=== PATIENT | female | born 1990 | race Caucasian/White ===

== ENCOUNTER 2021-04-07 16:13 | Outpatient (CLI) | payer BC ==
[~2021-04-07] VITALS: Ht 162.6 cm; Wt 84.5 kg
[~2021-04-07 16:13] MED LIST: BIRTH CONTROL PILLS; OMNICEF 300MG300 MG PO; ZOFRAN 4MG T4 MG/TAB PO; [UNRECOGNIZED DRUG - OTHER] OD
--- NOTE | 2021-04-07 16:20 | NUR ---
Pt arrived on unit ambulatory and with complaints of possible ROM and pink discharge when going to the bathroom. Pt denies feeling any contractions and reports normal movement. EFM and toco monitors started. Vital signs WNL. SVE by this RN FT/50/-2 with amnio-trace inconclusive.
--- NOTE | 2021-04-07 17:05 | NUR ---
Repeat amnio-trace done. Results inconclusive. Orders for ROM plus received and collected.
[2021-04-07 17:25] VITALS: BP 126/74; PULSE 99; TEMP 97.8
[2021-04-07] MEDS ORDERED: PRISTIQ 50 MG T50 MG PO (17:58)
[2021-04-07] MEDS ORDERED: PRENATAL (17:58)
[2021-04-07] MEDS ORDERED: OMEGA-3 1000 MG1 CAP PO (17:59)
[2021-04-07] MEDS ORDERED: OSCAL 500 TAB500 MG (17:59)
[2021-04-07] MEDS ORDERED: CLARITIN 1010 MG/TAB (17:59)
--- NOTE | 2021-04-07 18:10 | NUR ---
Discharge instructions reviewed with pt and at the bedside. Both verbalized an understanding and agreed with the plan.
== END 2021-04-07 18:25 | disposition home or self-care (01) ==
LOC: LDRO 16:13 → LDR 17:31 → LDRO 18:25
DX: Z34.93 Encounter for supervision of normal pregnancy, unspecified, third trimester (principal); Z3A.35 35 weeks gestation of pregnancy
CPT/HCPCS: OP

== ENCOUNTER 2021-05-08 06:13 | Inpatient (IN) | payer BC ==
[~2021-05-08] VITALS: Ht 162.6 cm; Wt 89.5 kg
[2021-05-08] VITALS (66 sets, daily range): BP systolic 98–180; BP diastolic 51–120; PULSE 65–126; TEMP 98–99.7
[~2021-05-08 06:13] MED LIST changes: +CLARITIN 1010 MG/TAB; +OMEGA-3 1000 MG1 CAP PO; +OSCAL 500 TAB500 MG; +PRENATAL; +PRISTIQ 50 MG T50 MG PO
--- NOTE | 2021-05-08 06:20 | NUR ---
PT AMBULATORY TO UNIT FOR SCHEDULED INDUCTION OF LABOR. PT ORIENTED TO LABOR AND AND ON EFM/TOCO. CATEGORY 1 STRIP UPON ARRIVAL. PT DENIES CONTRACTIONS, DENIES LEAKING OF FLUID, AND REPORTS POSITIVE MOVEMENT. WILL PROCEED WITH INDUCTION PER ORDERS.
[2021-05-08 07:22] LABS: BASO % 0.3 % (0.0-2.0); EOS # 0.3 K/mm3 (0.0-0.7); EOS % 2.5 % (0-4.0); GRAN # 8.7 K/mm3 (1.4-6.5); GRAN % 71.8 % (42.2-75.2); HEMOGLOBIN 12.8 g/dl (12.5-16.0); LYMPH # 2.2 K/mm3 (1.2-3.4); LYMPH % 17.8 % (20.0-51.0); MEAN CELL VOLUME 85 fl (80.0-100.0); MEAN CORPUSCULAR HEMOGLOBIN 30 pg (27.0-31.0); MEAN CORPUSCULAR HGB CONC 35 g/dl (33.0-37.0); MEAN PLATELET VOLUME 10.7 fl (7.4-10.4); MONO # 0.8 K/mm3 (0.1-0.6); MONO % 6.5 % (1.7-9.3); PLATELET COUNT 214 K/mm3 (130-400); RED BLOOD COUNT 4.34 M/mm3 (4.10-5.30); REDCELL DISTRIBUTION WIDTH-CV 12.8 % (11.5-14.5)
--- NOTE | 2021-05-08 08:15 | NUR ---
ROLES AT PT BEDSIDE. SVE /-2. NO NEW ORDERS GIVEN AT THIS TIME. WILL PROCEED WITH INDUCTION PER PROTOCOL/ORDERS.
--- NOTE | 2021-05-08 11:11 | NUR ---
SUMAYA SENA AT BEDSIDE AT THIS TIME. EDUCATES PT ON EPIDURAL PLACEMENT AND POSSIBLE SIDE EFFECTS. ALL CONSENTS SIGNED. PT ASSISTED TO SITTING POSITION ON EDGE OF BED FOR EPIDURAL PLACEMENT. LR BOLUS INFUSING. PT'S VITAL SIGNS STABLE. DIFFICULTY TRACING EFM/TOCO DUE TO MATERNAL POSITIONG. 1111: TEST DOSE PER JAIDA SHELL. PT TOLERATED PROCEDURE WELL.
--- NOTE | 2021-05-08 12:01 | NUR ---
this RN is taking over care for lunch relief
--- NOTE | 2021-05-08 22:45 | NUR ---
2032 - PEREZ CATHETER DC'D WITH 300CC NICOLE URINE OUT 2039 - PUSHING INITIATED, INSTRUCTED PT ON PUSHING TECHNIQUES, PUSHING WITH CTXS, RN REMAINS AT BEDSIDE COACHING PT WITH PUSHING AND ASSESSING STATUS
--- NOTE | 2021-05-08 22:51 | NUR ---
PT CONTINUES TO PUSH WITH CTXS, RN REMAINS AT BEDSIDE COACHING PT WITH PUSHING AND ASSESSING STATUS
--- NOTE | 2021-05-08 22:55 | NUR ---
PT CONTINUES TO PUSH WITH CTXS, RN REMAINS AT BEDSIDE COACHING PT WITH PUSHING AND ASSESSING STATUS. DR OCHOA CALLED TO COME FOR DELIVERY @ [id number]
--- NOTE | 2021-05-08 23:05 | NUR ---
2127 - DR ROLES TO BEDSIDE, PT UP IN [facility]ED[facility] FOR DELIVERY 2129 - DELIVERY OF VIABLE MALE INFANT, SPONTANEOUS CRY PRESENT, TO MOTHERS ABD, DRIED AND STIMULATED BY NURSERY NURSE
--- NOTE | 2021-05-08 23:09 | NUR ---
2132 - SPONTANEOUS DELIVERY OF PLACENTA. IV PITOCIN 30 UNITS IN 500CC LR, STARTED AT 333ML/HR 2144 - DR GABRIELA REPAIRING 2ND DEGREE LACERATION, SKIN TO SKIN WITH MOTHER
--- NOTE | 2021-05-08 23:36 | NUR ---
SKIN TO SKIN, NURSING
--- NOTE | 2021-05-09 00:43 | NUR ---
UP TO BR, VOIDS WITHOUT DIFFICULTY, DEBBIE CARE INSTRUCTED AND PERFORMED, PADS CHANGED AND ICE PACK RENEWED. BECOMES LIGHT HEADED AFTER VOIDING. TO W/C THEN TRANSFERRED TO ROOM 207 WITH INFANT AND SO
[2021-05-09 04:00] VITALS: BP 128/83; PULSE 96; TEMP 98.2
[2021-05-09 08:15] VITALS: BP 104/54; PULSE 63; TEMP 97.7
[2021-05-09] MEDS ORDERED: IBU800 M1 PO (08:39)
[2021-05-09 12:05] VITALS: BP 109/56; PULSE 82; TEMP 97.7
--- NOTE | 2021-05-09 12:42 | NUR ---
Assistant Womens Volleyball Coach offered congrats to patient and spouse.
[2021-05-09 18:20] VITALS: BP 112/65; PULSE 82; TEMP 98.7
[2021-05-10 08:45] VITALS: BP 113/74; PULSE 87; TEMP 97.8
== END 2021-05-10 12:45 | disposition home or self-care (01) | DRG 807 ==
LOC: LDR 06:13 → OB 07:26
PROVIDERS: ADMIT Obstetrics & Gynecology
PROC: 10E0XZZ Delivery of Products of Conception, External Approach (ICD-10-PCS; principal; 2021-05-08)
PROC: 0KQM0ZZ Repair Perineum Muscle, Open Approach (ICD-10-PCS; 2021-05-08)
PROC: 10907ZC Drainage of Amniotic Fluid, Therapeutic from Products of Conception, Via Natural or Artificial Opening (ICD-10-PCS; 2021-05-08)
PROC: 3E033VJ Introduction of Other Hormone into Peripheral Vein, Percutaneous Approach (ICD-10-PCS; 2021-05-08)
DX: O99.344 Other mental disorders complicating childbirth (principal); Z37.0 Single live birth; F32.A Depression, unspecified; F41.9 Anxiety disorder, unspecified; O70.1 Second degree perineal laceration during delivery; Z3A.40 40 weeks gestation of pregnancy
CPT/HCPCS: J2590; J7120